=== PATIENT | male | born 1965 | race Caucasian/White ===

== ENCOUNTER → 2017-01-07 | Outpatient (CLI) | payer OTHER ==
--- NOTE | 2017-01-07 13:27 | EKG REPORT ---
SEVERITY:- ABNORMAL ECG - SINUS RHYTHM ABNORMAL T, CONSIDER ISCHEMIA, ANTERIOR LEADS : Confirmed by: Sana Taveras MD 07-Jan-2017 13:25:52
== END ==
LOC: CCC 12:56
DX: I10 Essential (primary) hypertension (principal)
CPT/HCPCS: 93005; 93010

== ENCOUNTER 2020-09-29 13:35 | Emergency (ER) | payer OTHER, MEDICARE, MEDICAID ==
--- NOTE | 2020-09-29 15:29 | RADIOLOGY REPORT (SQ) ---
EXAM DESCRIPTION: KNEE LEFT 4 VIEW IMAGES COMPLETED DATE/TIME: 09/29/2020 2:03 pm REASON FOR STUDY: Tender to palpation. No reported injury. COMPARISON: None. NUMBER OF VIEWS: Four views. TECHNIQUE: AP, lateral, and both oblique radiographic images acquired of the left knee. LIMITATIONS: None. FINDINGS: MINERALIZATION: Normal. BONES: Left knee arthroplasty with components in good alignment. No evidence of hardware fracture, s ubsidence or loosening. Surgical staple at the tibial insertion patellar tendon also without evidenc e of hardware complication. No acute fracture or cortical disruption. JOINT: There is a moderate joint effusion. Normal joint space alignment. SOFT TISSUES: No soft tissue swelling. No radio-opaque foreign body. OTHER: No other significant finding. IMPRESSION: Moderate knee joint effusion. Left knee arthroplasty and surgical change at the tibial insertion patellar tendon without evidence of hardware complication. No acute fracture or dislocatio n. TECHNICAL DOCUMENTATION: JOB ID: [id number] 2010 [employer]- All Rights Reserved Reading location - IP/workstation name: [email or web address]
--- NOTE | 2020-09-29 16:26 | ER Document Report ---
ED General - General Chief Complaint: Knee Pain Stated Complaint: PAIN/SWELLING KNEE/CALF Time Seen by Provider: 09/29/20 16:26 Primary Care Provider: GRETCHEN ESTES MD [Primary Care Provider] - Follow up as needed TRAVEL OUTSIDE OF THE [place] IN LAST 30 DAYS: No - HPI Notes: 55-year-old male presents with left knee pain and swelling. Patient states that on Friday he saw his doctor for back pain, he states that he was told at that time that he had some fluid on his left knee as well as some inflammation in his back. He states he was started on the medication, he does not remember the name, however it has greatly relieved his back pain. He states that yesterday he realized that he had a marked amount of swelling to his left knee and it was painful to walk, pain travel down his leg. Patient states that today some of the swelling has gone down, however still present. He takes aspirin but no other blood thinners. He states that he called his primary care doctor and was advised to just call EMS due to the pain that he was having. Patient underwent TKA in June [address] Aguila. He states that he did have a fall on September 18, 2020 while at physical therapy. He states that he had no issues following this knee replacement. - Related Data Allergies/Adverse Reactions: gabapentin Allergy (Verified 09/29/20 14:27) Home Medications: pantoprazole, Lamatrigine, metoprolol, Rosuvastatin, hydrocodone, Escitalopram, trazodone, Aspirin, HCTZ, Oxcarbasepine, Ranolazine Past Medical History - General Information source: Patient - Social History Smoking Status: Never Smoker Frequency of alcohol use: None Drug Abuse: None Family History: Reviewed & Not Pertinent - Past Medical History Cardiac Medical History: Reports: Hx Hypertension Past Surgical History: Reports: Hx Cardiac Surgery, Hx Open Heart Surgery Review of Systems - Review of Systems Constitutional: denies: Fever EENT: No symptoms reported Cardiovascular: No symptoms reported Respiratory: No symptoms reported Gastrointestinal: No symptoms reported Genitourinary: No symptoms reported Male Genitourinary: No symptoms reported Musculoskeletal: Joint swelling. denies: Ankle swelling Skin: denies: Change in color Hematologic/Lymphatic: No symptoms reported Neurological/Psychological: No symptoms reported Physical Exam - Vital signs Vitals: Pulse Ox 96 09/29/20 13:49 - General General appearance: Appears well, Alert In distress: None - HEENT Head: Normocephalic, Atraumatic Extraocular movements intact: Yes Pupils: PERRL - Respiratory Respiratory status: No respiratory distress - Cardiovascular Rhythm: Regular Pulses: Normal: Dorsalis pedis Normal capillary refill: Yes - Abdominal Inspection: No: Obese - Extremities Notes: Palpable fluid to left knee. There is no erythema. Warmth is similar compared to right knee. Range of motion intact. Midline surgical scar appears to be well-healing. - Neurological Neuro grossly intact: Yes Cognition: Normal Orientation: AAOx4 Motor strength normal: LUE, RUE, LLE, RLE Sensory: Normal - Psychological Associated symptoms: Normal affect - Skin Skin Temperature: Warm Course - Re-evaluation Re-evalutation: 55-year-old male with left knee pain/swelling, increased yesterday and has decreased today per his report. On exam patient is afebrile, alert and nontoxic-appearing. There is palpable effusion to the left knee joint, however there is no erythema and no increased warmth to the knee itself. He has preserved range of motion. An x-ray was done prior to my evaluation which does show effusion. I discussed with patient that I am suspecting effusion, possibly related to his fall about a week ago. On aspirin but no anticoagulant to suggest hemarthrosis. Based on his exam, I currently do not have evidence of infection. I discussed with him that given he is semirecent post TKA, a tap should be performed by his orthopedic surgeon, he verbalized understanding and states that he will call the office on Friday. He was given a dose of Toradol. Hira wrap and crutches were provided. Discussed continued symptomatic control at home. Return precautions given, stable at time of discharge. - Vital Signs Vital signs: Temp Pulse Resp BP Pulse Ox 18 123/65 94 09/29/20 15:01 09/29/20 15:01 09/29/20 15:01 - Laboratory Results Critical Laboratory Results Reviewed: No Critical Results - Radiology Results Critical Radiology Results Reviewed: No Critical Results Discharge - Discharge Clinical Impression: Effusion, left knee, Status post total knee replacement, left Disposition: HOME, SELF-CARE Additional Instructions: Please use Hira wrap and crutches, be sure to elevate your leg and can apply ice while at rest. Please continue the anti-inflammatory that was prescribed to you. Please call your orthopedic doctor on Friday to discuss fluid removal in office. Return to the emergency department for fever, redness of the joint, increasing pain or any other concerning symptoms. Referrals: GRETCHEN ESTES MD [Primary Care Provider] - Follow up as needed
[2020-09-29] MEDS ORDERED: KETOROLAC TROMETHAMINE INJ/PF 30 MG/1 ML SDV IV ONE (16:41)
[2020-09-29 17:00] VITALS: BP 122/65
== END 2020-09-29 17:31 | disposition home or self-care (01) ==
LOC: ER 13:35
DX: M25.462 Effusion, left knee (principal); M25.562 Pain in left knee; Z96.652 Presence of left artificial knee joint; I10 Essential (primary) hypertension
CPT/HCPCS: 99284; 96374; 73564; J1885

== ENCOUNTER → 2020-10-02 | Outpatient (CLI) | payer MEDICARE, MEDICAID ==
--- NOTE | 2020-10-02 16:14 | RADIOLOGY REPORT (SQ) ---
EXAM DESCRIPTION: VENOUS UNILATERAL LOWER IMAGES COMPLETED DATE/TIME: 10/02/2020 4:05 pm REASON FOR STUDY: LLE PAIN M79.662 PAIN IN LEFT LOWER LEG COMPARISON: None. TECHNIQUE: Dynamic and static estrada scale and color images acquired of the left leg venous system. Se lected spectral images acquired with additional compression and augmentation maneuvers. The contralat eral common femoral vein and saphenofemoral junction were also imaged. Images stored on PACS. LIMITATIONS: None. FINDINGS: COMMON FEMORAL: Normal phasicity, compression and augmentation. No visualized echogenic ma terial on estrada scale. No defects on color images. FEMORAL: Normal compression and augmentation. No visualized echogenic material on estrada scale. No defe cts on color images. POPLITEAL: Normal compression, augmentation. No visualized echogenic material on estrada scale. No defec ts on color images. CALF VESSELS: Normal compression, augmentation. No visualized echogenic material on estrada scale. No de fects on color images. GSV and SSV: Normal compression, augmentation. No visualized echogenic material on estrada scale. No def ects on color images. ANY DEEP VENOUS INSUFFICIENCY: Not evaluated. ANY EVIDENCE OF POPLITEAL CYST: No. OTHER: No other significant finding. CONTRALATERAL COMMON FEMORAL VEIN AND SAPHENOFEMORAL JUNCTION: Normal phasicity, compression and augmentation. No visualized echogenic material on estrada scale. No de fects on color images. IMPRESSION: NO EVIDENCE DVT OR SVT IN THE LEFT LEG. TECHNICAL DOCUMENTATION: JOB ID: [id number] 2010 [employer]- All Rights Reserved Reading location - IP/workstation name: [email or web address]
== END ==
LOC: SP 14:27
PROVIDERS: ATTEND Orthopaedic Surgery Sports Medicine
DX: M79.662 Pain in left lower leg (principal)
CPT/HCPCS: 93971

== ENCOUNTER 2020-10-10 19:15 | Emergency (ER) | payer MEDICARE, MEDICAID ==
--- NOTE | 2020-10-10 20:17 | ER Document Report ---
ED Medical Screen (RME) - General Chief Complaint: Knee Pain Stated Complaint: LEFT KNEE PAIN/POST OP ISSUES Time Seen by Provider: 10/10/20 20:08 Primary Care Provider: FANTASMA VERMA [Primary Care Provider] - Follow up as needed Mode of Arrival: Ambulatory Information source: Patient TRAVEL OUTSIDE OF THE [place] IN LAST 30 DAYS: No - HPI Patient complains to provider of: Left knee pain, leg swelling Notes: 10/10/20 20:15 Patient here with complaints of left leg pain/knee pain and swelling. The patient had a knee replacement back in June. Been having some pain and swelling for the last 1 to 2 weeks. Last week he had an ultrasound which was negative and an x-ray which was unremarkable for any complication. He saw his orthopedist yesterday. He continues to have worsening pain. He states he was unable to get off the toilet so he came in for evaluation. He denies any fever. No numbness, tingling, weakness. Pain is moderate to severe, constant, worse with movement, nothing seems to make it better. Exam: Nontoxic, no distress. Lungs clear and equal throughout. Heart sounds normal. Tenderness to palpation to the left knee with knee effusion. Pitting edema to the left lower extremity. No redness. An initial examination was made on the patient as part of the triage process, and it was determined a more comprehensive evaluation was necessary. Initial orders were placed and patient was transferred to another provider in the ED who assumed care and finished evaluation and plan. - Related Data Allergies/Adverse Reactions: gabapentin Allergy (Verified 10/10/20 20:05) Home Medications: [id number] Past Medical History - Social History Frequency of alcohol use: None Drug Abuse: None - Past Medical History Cardiac Medical History: Reports: Hx Hypertension Past Surgical History: Reports: Hx Cardiac Surgery, Hx Open Heart Surgery Physical Exam - Vital signs Vitals: Temp Pulse Resp BP Pulse Ox 98.7 F 83 18 128/62 H 98 10/10/20 19:25 10/10/20 19:25 10/10/20 19:25 10/10/20 19:25 10/10/20 19:25 Course - Vital Signs Vital signs: Temp Pulse Resp BP Pulse Ox 98.7 F 83 18 128/62 H 98 10/10/20 19:25 10/10/20 19:25 10/10/20 19:25 10/10/20 19:25 10/10/20 19:25 Doctor's Discharge - Discharge Referrals: LOCAL,NO [Primary Care Provider] - Follow up as needed
[2020-10-10 20:49] LABS: ABSOLUTE BASOPHILS # (AUTO) 0.1 10^3/uL (0.0-0.2); ABSOLUTE LYMPHOCYTES (AUTO) 1.1 10^3/uL (0.5-4.7); ABSOLUTE MONOCYTES (AUTO) 0.8 10^3/uL (0.1-1.4); BASOPHILS % (AUTO) 0.4 % (0-2); EOSINOPHILS % (AUTO) 0.2 % (0-6); HEMOGLOBIN 12.2 g/dL (13.5-17.0); LYMPHOCYTES % (AUTO) 8.1 % (13-45); MEAN CORPUSCULAR HEMOGLOBIN 28.6 pg (27.0-33.4); MEAN CORPUSCULAR HGB CONC 33.8 g/dL (32.0-36.0); MEAN CORPUSCULAR VOLUME 85 fl (80-97); MONOCYTES % (AUTO) 5.8 % (3-13); PLATELET COUNT 405 10^3/uL (150-450); RED BLOOD COUNT 4.26 10^6/uL (4.35-5.55); RED CELL DISTRIBUTION WIDTH 15.2 % (11.5-14.0); SEGMENTED NEUTROPHILS % (AUTO) 85.5 % (42-78); TOTAL CELLS COUNTED % (AUTO) 100 %
[2020-10-10 20:56] LABS: INTERNATIONAL RATION (INR) 1.08; PROTHROMBIN TIME 14.2 SEC (11.4-15.4)
[2020-10-10 20:57] LABS: PARTIAL THROMBOPLASTIN TIME 46.6 SEC (23.5-35.8)
[2020-10-10 21:06] LABS: ALBUMIN 3.6 g/dL (3.5-5.0); ALKALINE PHOSPHATASE 103 U/L (38-126); ANION GAP 8 (5-19); ASPARTATE AMINO TRANSFERASE 17 U/L (17-59); BILIRUBIN,DIRECT 0.4 mg/dL (0.0-0.4); BILIRUBIN,TOTAL 0.6 mg/dL (0.2-1.3); BLOOD UREA NITROGEN 16 mg/dL (7-20); CALCIUM 9.5 mg/dL (8.4-10.2); CARBON DIOXIDE 34 mmol/L (22-30); CHLORIDE 94 mmol/L (98-107); GLUCOSE 129 mg/dL (75-110)
[2020-10-10 21:09] LABS: POTASSIUM 2.8 mmol/L (3.6-5.0)
[2020-10-10] MEDS ORDERED: POTASSIUM CHLORIDE 10 MEQ TABLET.ER PO ONE ×2 (21:17→23:00)
--- NOTE | 2020-10-10 21:40 | RADIOLOGY REPORT (SQ) ---
EXAM DESCRIPTION: US EXTREMITY VEINS UNILATERAL COMPLETED DATE/TME: 10/10/2020 21:16 CLINICAL HISTORY: 55 years, Male, left leg swelling, knee pain, postop from oct EXAM DESCRIPTION: VENOUS UNILATERAL LOWER CLINICAL HISTORY: 55 years Male left leg swelling, knee pain, postop from oct COMPARISON: None. TECHNIQUE: Duplex and color Doppler imaging performed to evaluate the extremity deep venous structures. Compression imaging and augmentation imaging performed. FINDINGS: There is slow flow in the left popliteal vein. Exam is otherwise unremarkable. No thrombus is identified in the deep venous structures imaged. There is otherwise normal flow, compressibility, and augmentation throughout. IMPRESSION: There is slow flow in the left popliteal vein. Exam is otherwise unremarkable. No DVT is identified.
--- NOTE | 2020-10-10 22:02 | EKG REPORT ---
SEVERITY:- DEFECTIVE ECG - SINUS RHYTHM NONSPECIFIC INTRAVENTRICULAR CONDUCTION DELAY MINIMAL ST DEPRESSION, ANTEROLATERAL LEADS : Confirmed by: Palomo Burr MD 10-Oct-2020 22:01:44
--- NOTE | 2020-10-10 23:32 | ER Document Report ---
ED General - General Chief Complaint: Knee Pain Stated Complaint: LEFT KNEE PAIN/POST OP ISSUES Time Seen by Provider: 10/10/20 20:08 Primary Care Provider: FANTASMA VERMA [Primary Care Provider] - Follow up as needed Mode of Arrival: Ambulatory TRAVEL OUTSIDE OF THE [place] IN LAST 30 DAYS: No - HPI Notes: 55-year-old male presents with left knee pain. Patient had total knee replacement done in June 2020. For the past several weeks he has had pain and swelling to his left knee, diagnosed with joint effusion. Patient states that he saw his orthopedic doctor (Dr Jefe Aguila, [facility]) and was told that he would not drain the knee. It was recommended that he continue physical therapy. Patient reports that today in physical therapy, there was some maneuver done which caused increased pain from baseline. Patient states that when he got home, he had severe pain, inability to bear weight. He states that he was able to make it to the bathroom, however was unable to stand up to get off the toilet, therefore EMS was called. He reports that the pain and swelling has caused some loss of sensation to the medial aspect of his knee. He also feels some intermittent tingling in his toes. He denies fever. Notes that his knee does feel warm. - Related Data Allergies/Adverse Reactions: gabapentin Allergy (Verified 10/10/20 20:05) Home Medications: [id number] Past Medical History - General Information source: Patient - Social History Smoking Status: Never Smoker Frequency of alcohol use: None Drug Abuse: None Family History: Reviewed & Not Pertinent - Past Medical History Cardiac Medical History: Reports: Hx Hypertension Past Surgical History: Reports: Hx Cardiac Surgery, Hx Open Heart Surgery Review of Systems - Review of Systems Constitutional: denies: Fever EENT: No symptoms reported Cardiovascular: No symptoms reported Respiratory: No symptoms reported Gastrointestinal: No symptoms reported Genitourinary: No symptoms reported Male Genitourinary: No symptoms reported Musculoskeletal: See HPI Skin: No symptoms reported Hematologic/Lymphatic: No symptoms reported Neurological/Psychological: See HPI Physical Exam - Vital signs Vitals: Temp Pulse Resp BP Pulse Ox 98.7 F 83 18 128/62 H 98 10/10/20 19:25 10/10/20 19:25 10/10/20 19:25 10/10/20 19:25 10/10/20 19:25 - General General appearance: Appears well, Alert In distress: None - HEENT Head: Normocephalic, Atraumatic Extraocular movements intact: Yes Pupils: PERRL - Respiratory Breath sounds: Normal - Cardiovascular Rhythm: Regular Heart sounds: Normal auscultation - Abdominal Tenderness: Nontender - Extremities Notes: There is palpable effusion to the left knee joint, it is enlarged in size compared to the right. There is no overlying erythema. There is slight increase in warmth compared to the right. Patient with significantly reduced range of motion to the left knee. Unable to fully extend. Unable to fully contract quadriceps. He is able to wiggle toes. Subjective decreased sensation to the medial aspect. - Neurological Orientation: AAOx4 - Psychological Associated symptoms: Normal affect - Skin Skin Temperature: Warm Course - Re-evaluation Re-evalutation: 55-year-old male status post TKA June 2020 here with worsening knee pain after physical therapy today. I saw and evaluated this patient on 09/29 for joint effusion, I recommended that he follow-up with his orthopedic doctor for e valuation of arthrocentesis given that this is the replaced joint. He did follow-up with his orthopedic doctor and apparently has been told that no tap will take place, does not give further reason why per patient. On exam patient does have again large joint effusion, no erythema but there is some warmth today. Significantly decreased range of motion and some subjective loss of sensation. I am concerned that patient might have ligamentous injury or potentially tendon rupture, he does need an MRI to evaluate this. Discussed with patient that MRI is unavailable overnight, he is agreeable to stay that this can be done first thing in the morning. We will also get a look to see if there is any evidence of infection as he does have a leukocytosis today. He is afebrile and hemodynamically stable. Again given that this is an artificial joint, standard of care is for arthrocentesis to be performed by an orthopedic surgeon. Will treat pain with combination of Dilaudid and Toradol, he is chronically on opioids 4 times daily. Patient had ultrasound done through triage process which was negative for DVT. His labs are notable additionally for hypokalemia which was replaced orally. 10/11/20 02:47 Patient to be signed out, pending MRI in the morning - Vital Signs Vital signs: Temp Pulse Resp BP Pulse Ox 98.7 F 83 18 124/65 92 10/10/20 19:25 10/10/20 19:25 10/11/20 01:01 10/11/20 01:00 10/11/20 01:01 - Laboratory Results Result Diagrams: 10/10/20 20:24 10/10/20 20:24 Laboratory Results Interpreted: 10/10/20 10/10/20 10/10/20 20:24 20:24 20:24 WBC 14.0 H RBC 4.26 L Hgb 12.2 L Hct 36.0 L RDW 15.2 H Lymph % (Auto) 8.1 L Absolute Neuts (auto) 12.0 H Seg Neutrophils % 85.5 H APTT 46.6 H Sodium 136.1 L Potassium 2.8 L* Chloride 94 L Carbon Dioxide 34 H Glucose 129 H Critical Laboratory Results Reviewed: Yes Attending or Supervising Physician who Reviewed Labs: LISETTE LEON - Radiology Results Critical Radiology Results Reviewed: No Critical Results - EKG Interpretation by Me Additional EKG results interpreted by me: EKG is interpreted by me. Sinus rhythm, rate 79. Poor baseline in limb leads. Possible nonspecific intraventricular conduction delay. Prolonged QTc. Possible ST depressions anterolaterally which is seen on EKG December 2016. No STEMI. Discharge - Discharge Clinical Impression: Effusion, left knee, Hypokalemia Disposition: OTHER Referrals: LOCALMD,NO [Primary Care Provider] - Follow up as needed
[2020-10-10] MEDS ORDERED: KETOROLAC TROMETHAMINE INJ/PF 30 MG/1 ML SDV IV ONE (23:55)
[2020-10-11] MEDS: HYDROMORPHONE HCL INJ/PF 2 MG/ML AMPULE IV PRN ×3 (00:54→12:44)
--- NOTE | 2020-10-11 09:55 | RADIOLOGY REPORT (SQ) ---
EXAM DESCRIPTION: MRI LT LOWER JOINT WITHOUT IMAGES COMPLETED DATE/TIME: 10/11/2020 9:38 am REASON FOR STUDY: s/p L TKA, eval evidence of infection, torn ligame COMPARISON: 09/29/2020 TECHNIQUE: Leftknee images acquired and stored on PACS. Multiplanar images include fat sensitive se quences as T1, water sensitive sequences as FST2 or STIR, cartilage sensitive sequences as FSPD, and gradient echo sequences. LIMITATIONS: N total knee arthroplasty hardware effect significant metallic susceptibility weighted artifact, limiting visualization of the surrounding structures. FINDINGS: JOINT AND BURSAE: No effusion. BONE CORTEX AND MARROW: Status post total knee arthroplasty, the retained hardware of which confers s ignificant martins artifact limiting evaluation of the distal femur and proximal tibia. No gross abnor malities identified. ACL: Status post total knee arthroplasty PCL: Status post total knee arthroplasty MCL: Intact. No periligamentous edema or fluid. LCL: Intact. No periligamentous edema or fluid. MEDIAL MENISCUS: Status post total knee arthroplasty LATERAL MENISCUS: Status post total knee arthroplasty MEDIAL COMPARTMENT: Status post total knee arthroplasty. No discrete evidence of hardware complicati on. LATERAL COMPARTMENT: Status post total knee arthroplasty. No discrete evidence of hardware complicat ion. PATELLA: Status post total knee arthroplasty. No discrete evidence of hardware complication. EXTENSOR MECHANISM: The quadriceps and patellar tendons appear to be intact ; proximal tibial tendon anchors without evidence of gross complication. SOFT TISSUES: Adjacent muscles and subcutaneous tissues normal. Normal flow void in popliteal artery and vein. OTHER: No other significant finding. IMPRESSION: Extremely limited examination due to metallic susceptibility weighted artifact on the ba sis of total knee arthroplasty hardware. No evidence of hardware complication, osseous injury, or so ft tissue abnormality. TECHNICAL DOCUMENTATION: JOB ID: [id number] 2010 [employer]- All Rights Reserved Reading location - IP/workstation name: [email or web address]
[2020-10-11 14:25] VITALS: BP 131/73
== END 2020-10-11 14:25 | disposition home or self-care (01) ==
LOC: ER 19:15
DX: M25.462 Effusion, left knee (principal); E87.6 Hypokalemia; M25.562 Pain in left knee; Z96.652 Presence of left artificial knee joint; I10 Essential (primary) hypertension
CPT/HCPCS: 93005; 96376; 99285; 96374; 96375; 36415; 85025; 85652; 85610; 85730; 86140; 80053; 93971; 73721; 93010; J1885; J1170; A9270